=== PATIENT | male | born 1980 | race Caucasian/White ===

== ENCOUNTER 2016-11-07 20:30 | Emergency (ER) | payer SELFPAY ==
[~2016-11-07] VITALS: Ht 188 cm; Wt 93.0 kg
[~2016-11-07 20:30] MED LIST: LISI40TA PO; PARO40TA2 PO
[2016-11-07 20:36] VITALS: BP 164/91; PULSE 82; RESP 16; TEMP 97.6; O2SAT 95
[2016-11-07] MEDS ORDERED: IBUP800T23 PO (21:25)
--- NOTE | 2016-11-07 21:25 | PD ---
HPI Chief Complaint: Laceration/Skin Injury Time Seen by Provider: 21:19 Travel History International Travel<30 days: No Contact w/Intl Traveler<30days: No Traveled to known affect area: No History of Present Illness HPI Patient is a 36-year-old male presenting to emergency department for evaluation of a laceration to his left third finger pad. Patient was cutting vegetables and subsequently cut his finger. He reports that his last tetanus vaccine was less than 5 years ago. His pain is a 3 out of 10 and states it's aching and sore. He denies any other complaints. Patient denies any numbness, tingling, weakness in his hand. PFSH Past Medical History Asthma: No Autoimmune Disease: No Blood Disorders: No Anxiety: Yes Depression: Yes Cancer: No Cardiovascular Problems: No COPD: No Diabetes: No Diminished Hearing: No Endocrine: No Genitourinary: No Hepatitis: No Hiatal Hernia: No Hypertension: Yes Immune Disorder: No Medical other: No Musculoskeletal: No Neurologic: Yes (ISOLATED SEIZURE ) Psychiatric: Yes (DEPRESSION/ ANXIETY) Respiratory: No Integumentary: Yes (HISTORY OF MRSA) Immunizations Current: Yes Seizures: Yes Sleep Apnea: No Thyroid Disease: No Tetanus Vaccination: < 5 Years PNEUMOCCOCAL Vaccine (Year): 2 Past Surgical History AICD: No Genitourinary Surgery: No Joint Replacement: No Oral Surgery: Yes Pacemaker: No Thoracic Surgery: No Other Surgery: Yes (r hand mrsa) Social History Alcohol Use: No (6 to 8 beers a night) Tobacco Use: Yes (pack a day) Substance Use: Yes (MARIJUANA OCCAS.) Allergies-Medications (Allergen,Severity, Reaction): Coded Allergies: *MDRO Multi-Drug Resistant Organism (Verified Allergy, Unknown, 11/07/16) MRSA 2007 bupropion (Unverified Allergy, Unknown, POSSIBLE SEIZURE, 11/07/16) Reported Meds & Prescriptions Reported Meds & Active Scripts Active Paroxetine (Paroxetine HCl) 40 Mg Tab 40 Mg PO DAILY Lisinopril 40 Mg Tab 40 Mg PO DAILY Review of Systems Except as stated in HPI: all other systems reviewed are Neg Skin: Positive Other (laceration) Physical Exam Narrative GENERAL: Well-developed, well-nourished, alert male. Resting comfortably in no acute distress. SKIN: Warm and dry. Once admitted superficial laceration to the right third finger pad. Sensation is intact, brisk less than 3 second capillary refill. HEAD: Normocephalic. EYES: No scleral icterus. No injection or drainage. NECK: Supple, trachea midline. No JVD or lymphadenopathy. CARDIOVASCULAR: Regular rate and rhythm without murmurs, gallops, or rubs. RESPIRATORY: Breath sounds equal bilaterally. No accessory muscle use. GASTROINTESTINAL: Abdomen soft, non-tender, nondistended. MUSCULOSKELETAL: No cyanosis, or edema. Full range of motion in right hand and fingers. Patient is neurovascularly intact. BACK: Nontender without obvious deformity. No CVA tenderness. Data Data Last Documented VS Vital Signs Date Time Temp Pulse Resp B/P (MAP) Pulse Ox O2 Delivery O2 Flow Rate FiO2 11/07/16 20:36 97.6 82 16 164/91 (115) 95 [facility] Medical Decision Making Medical Screen Exam Complete: Yes Emergency Medical Condition: Yes Interpretation(s) Vital Signs Date Time Temp Pulse Resp B/P (MAP) Pulse Ox O2 Delivery O2 Flow Rate FiO2 11/07/16 20:36 97.6 82 16 164/91 (115) 95 Differential Diagnosis Laceration versus abrasion versus tendon injury versus other Narrative Course Patient is a 36-year-old male presenting for evaluation of a laceration to his right third finger pad. Patient's tetanus vaccine is up-to-date, his vital signs are stable. Please see procedure performed laceration repair. Patient was educated on the signs and symptoms of infection. He was educated on wound care. He was encouraged to keep hand clean and dry, avoid submerging water. He was advised that sutures will need to come out in 7-10 days. He was advised that he can follow-up with his primary doctor or return to emergency department to have this performed. He was encouraged to return to ER immediately for any new or worsening symptoms. Patient verbalized understanding of instructions. Patient is stable for discharge. Procedures Procedure Narrative LACERATION LOCATION: Right third finger pad LENGTH: 1. NUMBER OF STITCHES/ROBERT: 5 stitches REPAIR: The area of the laceration was prepped with Betadine and sterilely draped. The laceration was infiltrated with 1% lidocaine. The wound was copiously irrigated and explored without evidence of foreign body, tendon injury or neurovascular injury. The wound was closed using 4-0 Prolene]. This was a 1 layer repair. A sterile dressing was applied. The patient was advised to keep the dressing clean and dry. Patient tolerated the procedure well. Diagnosis Primary Impression: Laceration of finger Qualified Codes: S61.212A - Laceration without foreign body of right middle finger without damage to nail, initial encounter Referrals: Primary Care Physician 1 week Patient Instructions: Care For Your Stitches (DC), Finger Laceration (ED), General Instructions Departure Forms: Tests/Procedures, Work Release Special Instructions: Do not submerge right hand in water Additional Instructions: Follow-up with her primary doctor or return to emergency department in 7-10 days to have stitches removed Keep hand clean and dry, do not submerge and water, you may shower and wash with soap and water Return to emergency department immediately for any new or worsening symptoms Med/Other Pt SpecificInfo: Prescription(s) given Scripts Ibuprofen (Ibuprofen) 800 Mg Tab 800 MG PO Q8H Y for Pain/Inflammation, #30 TAB 0 Refills Prov: Vijaya Hernandez 11/07/16 Disposition: 01 DISCHARGE HOME Condition: Stable Vijaya Hernandez Nov 07, 2016 21:25
== END 2016-11-07 21:36 | disposition home or self-care (01) ==
LOC: NEPK 20:30
DX: S61.212A Laceration without foreign body of right middle finger without damage to nail, initial encounter (principal); F41.9 Anxiety disorder, unspecified; F32.9 Major depressive disorder, single episode, unspecified; I10 Essential (primary) hypertension; R56.9 Unspecified convulsions; F17.200 Nicotine dependence, unspecified, uncomplicated; W45.8XXA Other foreign body or object entering through skin, initial encounter; Y93.G1 Activity, food preparation and clean up
CPT/HCPCS: 12001